=== PATIENT | male | born 1995 | race Caucasian/White ===

== ENCOUNTER 2022-12-31 13:40 | Emergency (ER) | payer OTHER ==
[2022-12-31 13:57] VITALS: BP 145/88; PULSE 74; RESP 20; TEMP 97.9; BMI 29.0
[2022-12-31] MEDS ORDERED: ACETAMINOPHEN 325 MG TABLET (FP) PO ONE (14:52)
[2022-12-31] MEDS ORDERED: LIDOCAINE HCL 1%, 10 MG/ML (10ML VIAL) MDV ONE (15:09)
[2022-12-31] MEDS ORDERED: LACTATED RINGERS SOLUTION 1000 ML INFUS.BAG IV ONE (15:42)
[2022-12-31] MEDS ORDERED: ACETAMINOPHEN 325 MG TABLET (FP) ONE (16:29)
== END 2022-12-31 16:54 | disposition home or self-care (01) ==
LOC: JER 13:40
DX: S61.210A Laceration without foreign body of right index finger without damage to nail, initial encounter (principal); W31.2XXA Contact with powered woodworking and forming machines, initial encounter
CPT/HCPCS: 73110-TC-RT-FY; 73130-TC-RT-FY; 99284-25

== ENCOUNTER 2023-01-10 14:55 | Emergency (ER) | payer OTHER ==
[2023-01-10 15:04] VITALS: BP 125/86; PULSE 82; RESP 18; TEMP 98.2; BMI 29.0
== END 2023-01-10 16:09 | disposition home or self-care (01) ==
LOC: JERFT 14:55
DX: Z48.02 Encounter for removal of sutures (principal)
CPT/HCPCS: 99281-25

== ENCOUNTER 2023-02-13 10:56 | Emergency (ER) | payer OTHER ==
[2023-02-13 11:08] VITALS: BP 132/84; PULSE 88; RESP 17; TEMP 97.1; BMI 24.4
[2023-02-13] MEDS ORDERED: FAMOTIDINE 20 MG TABLET PO ONE (11:53)
[2023-02-13] MEDS ORDERED: LORATADINE 10 MG TABLET PO ONE (11:53)
[2023-02-13] MEDS ORDERED: LORATADINE 10 MG TABLET ONE (11:57)
[2023-02-13] MEDS ORDERED: FAMOTIDINE 20 MG TABLET ONE (11:57)
== END 2023-02-13 12:07 | disposition home or self-care (01) ==
LOC: JERFT 10:56
DX: R21 Rash and other nonspecific skin eruption (principal); S61.451A Open bite of right hand, initial encounter; L03.114 Cellulitis of left upper limb; W54.0XXA Bitten by dog, initial encounter
CPT/HCPCS: 99283-25